=== PATIENT | female | born 1965 | race Caucasian/White ===

== ENCOUNTER → 2016-10-25 | Outpatient (REF) | payer BC | LOC: M LAB REF 10:11 | PROVIDERS: ATTEND Physician Assistant | DX: N39.0 Urinary tract infection, site not specified (principal) ==

== ENCOUNTER → 2016-11-17 | Outpatient (REF) | payer BC ==
[2016-11-17 12:17] LABS: MEAN CORPUSCULAR HEMOGLOBIN 30.1 pg (27.0-33.0); MEAN CORPUSCULAR HGB CONC 33.1 g/dl (32.0-36.5); RED CELL DISTRIBUTION WIDTH 12.2 % (11.5-14.5)
[2016-11-17 12:42] LABS: ALBUMIN 3.8 GM/DL (3.2-5.2); ALBUMIN/GLOBULIN RATIO 1.09 (1.00-1.93); ALKALINE PHOSPHATASE 111 U/L (45-117); ALT/SGPT 23 U/L (12-78); ANION GAP 6 MEQ/L (8-16); AST/SGOT 21 U/L (15-37); BILIRUBIN,TOTAL 0.5 MG/DL (0.2-1.0); BLOOD UREA NITROGEN 12 MG/DL (7-18); CALCIUM LEVEL 9.3 MG/DL (8.5-10.1); CARBON DIOXIDE LEVEL 30 MEQ/L (21-32); CHLORIDE LEVEL 106 MEQ/L (98-107); CHOLESTEROL LEVEL 204 MG/DL (<200); CREATININE FOR GFR 0.82 MG/DL (0.55-1.02); GLOMERULAR FILTRATION RATE > 60.0 (>51); GLUCOSE, FASTING 108 MG/DL (70-105); POTASSIUM SERUM 4.1 MEQ/L (3.5-5.1); SODIUM LEVEL 142 MEQ/L (136-145); TOTAL PROTEIN 7.3 GM/DL (6.4-8.2); TRIGLYCERIDES LEVEL 184 MG/DL (<150)
== END ==
LOC: M SFHCCLAY 07:03
PROVIDERS: ATTEND Nurse Practitioner Family
DX: F32.9 Major depressive disorder, single episode, unspecified (principal); E78.5 Hyperlipidemia, unspecified; E55.9 Vitamin D deficiency, unspecified

== ENCOUNTER → 2017-01-04 | Outpatient (CLI) | payer BC | LOC: M LAB 13:17 | PROVIDERS: ATTEND Physician Assistant | DX: N39.0 Urinary tract infection, site not specified (principal) ==

== ENCOUNTER → 2017-01-22 | Outpatient (REF) | payer BC | LOC: M SFHCCLAY 08:53 | PROVIDERS: ATTEND Nurse Practitioner Family | DX: N39.0 Urinary tract infection, site not specified (principal) ==

== ENCOUNTER → 2017-02-26 | Outpatient (CLI) | payer BC ==
[~2017-02-26] MED LIST: BUPR150T3 PO; CRANPOW2 PO; FISH1000 PO; SLEE1TAB PO; XANA0.5T PO
--- NOTE | 2017-02-26 10:48 | REP ---
Urinary tract sonogram: History: Recurrent UTI Comparison: No comparison study Findings: Scanning at the level of the urinary bladder shows no abnormality. Pre void bladder volume is calculated at 295 ml. Postvoid bladder volume is 36 ml. Emptying ureteral jets are confirmed bilaterally. Renal cortical echogenicity pattern is normal bilaterally and contours are smooth. There is no evidence of hydronephrosis, cyst, mass, or calculus in either kidney. The right kidney measures 9.9 x 4.5 x 4.2 cm. Left renal dimensions are 10.2 x 3.9 x 4.1 cm. Impression: Normal urinary tract sonography. Signed by Vaughn Ortiz MD 02/26/2017 10:39 A
== END ==
LOC: M SMT 07:54
PROVIDERS: ATTEND Nurse Practitioner Women's Health
DX: R31.29 Other microscopic hematuria (principal); N39.0 Urinary tract infection, site not specified

== ENCOUNTER 2017-03-09 07:52 | Outpatient (CLI) | payer BC ==
[~2017-03-09] VITALS: Ht 170.2 cm; Wt 68.9 kg
[~2017-03-09 07:52] MED LIST changes: +LR 1,000 ML IV SCH
[2017-03-09] MEDS ORDERED: PROPOFOL 200 MG/20 ML VIAL As Ordered ONE (08:32)
[2017-03-09] MEDS ORDERED: LIDOCAINE 2% INJ 100 MG/5 ML SDV (FOR ANES.) As Ordered ONE (08:33)
--- NOTE | 2017-03-09 10:14 | ROOR ---
Patient Name: Kisha Bravo Procedure Date: 03/09/2017 9:47 AM Date of : 1965 Age: 51 Room: [facility] Gender: Female Note Status: Finalized Procedure: Colonoscopy Indications: Screening for colorectal malignant neoplasm, This is the patient's first colonoscopy Providers: Brandon Guy MD Referring MD: Drew Jack MD Requesting Provider: Medicines: Monitored Anesthesia Care Complications: No immediate complications. Procedure: Pre-Anesthesia Assessment: - Prior to the procedure, a History and Physical was performed, and patient medications and allergies were reviewed. The patient is competent. The risks and benefits of the procedure and the sedation options and risks were discussed with the patient. All questions were answered and informed consent was obtained. Patient identification and proposed procedure were verified by the physician, the nurse and the anesthesiologist in the procedure room. Mental Status Examination: alert and oriented. Airway Examination: normal oropharyngeal airway and neck mobility. CV Examination: regular rate and rhythm. Prophylactic Antibiotics: The patient does not require prophylactic antibiotics. Prior Anticoagulants: The patient has taken no previous anticoagulant or antiplatelet agents. ASA Grade Assessment: I - A normal, healthy patient. After reviewing the risks and benefits, the patient was deemed in satisfactory condition to undergo the procedure. The anesthesia plan was to use monitored anesthesia care (MAC). Immediately prior to administration of medications, the patient was re-assessed for adequacy to receive sedatives. The heart rate, respiratory rate, oxygen saturations, blood pressure, adequacy of pulmonary ventilation, and response to care were monitored throughout the procedure. The physical status of the patient was re-assessed after the procedure. The Colonoscope was introduced through the anus and advanced to the cecum, identified by appendiceal orifice and ileocecal valve. The colonoscopy was performed without difficulty. The patient tolerated the procedure well. The quality of the bowel preparation was excellent. Findings: The perianal and digital rectal examinations were normal. The colon (entire examined portion) appeared normal. Impression: - The entire examined colon is normal. - No specimens collected. Recommendation: - Discharge patient to home. - Resume regular diet. - Continue present medications. - Repeat colonoscopy in 10 years for screening purposes. - Return to endoscopist PRN. Brandon Guy MD 03/09/2017 10:14:02 AM Number of Addenda: 0 Note Initiated On: 03/09/2017 9:47 AM Estimated Blood Loss: Estimated blood loss: none.
[2017-03-09 10:35] VITALS: BP 123/78
== END 2017-03-09 10:42 | disposition home or self-care (01) ==
LOC: M OPP 07:52
PROVIDERS: ATTEND Surgery
DX: Z12.11 Encounter for screening for malignant neoplasm of colon (principal); F41.9 Anxiety disorder, unspecified; F32.9 Major depressive disorder, single episode, unspecified; Z78.0 Asymptomatic menopausal state; J45.909 Unspecified asthma, uncomplicated; Z87.440 Personal history of urinary (tract) infections; Z88.2 Allergy status to sulfonamides; Z79.899 Other long term (current) drug therapy

== ENCOUNTER → 2017-05-03 | Outpatient (REF) | payer BC ==
[~2017-05-03] MED LIST changes: -LR 1,000 ML IV SCH
== END ==
LOC: M SFHCCLAY 10:05
PROVIDERS: ATTEND Nurse Practitioner
DX: N13.9 Obstructive and reflux uropathy, unspecified (principal)

== ENCOUNTER → 2017-07-07 | Outpatient (REF) | payer BC ==
[2017-07-07 12:44] LABS: SQUAMOUS EPITHELIAL CELL URINE SMALL AMOUNT /hpf (SMALL AMT)
[2017-07-07 12:45] LABS: BACTERIA, URINE NONE SEEN; HYALINE CAST, URINE NONE SEEN /lpf (0-1); MICROSCOPIC EXAM PERFORMED
== END ==
LOC: M SFHCCLAY 07:33
PROVIDERS: ATTEND Nurse Practitioner Family
DX: E78.5 Hyperlipidemia, unspecified (principal); R31.29 Other microscopic hematuria; E55.9 Vitamin D deficiency, unspecified

== ENCOUNTER → 2017-12-06 | Outpatient (REF) | payer BC | LOC: M SFHCCLAY 14:16 | DX: F32.9 Major depressive disorder, single episode, unspecified (principal); E78.5 Hyperlipidemia, unspecified; E55.9 Vitamin D deficiency, unspecified ==

== ENCOUNTER → 2017-12-08 | Outpatient (REF) | payer BC ==
[2017-12-08 16:54] LABS: HEMATOCRIT 36.9 % (36.0-47.0); HEMOGLOBIN 12.2 g/dl (12.0-15.5); MEAN CORPUSCULAR HEMOGLOBIN 30.2 pg (27.0-33.0); MEAN CORPUSCULAR HGB CONC 33.1 g/dl (32.0-36.5); MEAN CORPUSCULAR VOLUME 91.3 fl (80.0-96.0); PLATELET COUNT, AUTOMATED 310 10^3/uL (150-450); RED BLOOD COUNT 4.04 10^6/uL (4.00-5.40); RED CELL DISTRIBUTION WIDTH 11.9 % (11.5-14.5); WHITE BLOOD COUNT 8.1 10^3/uL (4.0-10.0)
[2017-12-08 17:07] LABS: ALBUMIN 3.9 GM/DL (3.2-5.2); ALBUMIN/GLOBULIN RATIO 1.05 (1.00-1.93); ALKALINE PHOSPHATASE 107 U/L (45-117); ALT/SGPT 22 U/L (12-78); ANION GAP 6 MEQ/L (8-16); AST/SGOT 19 U/L (7-37); BILIRUBIN,TOTAL 0.3 MG/DL (0.2-1.0); BLOOD UREA NITROGEN 16 MG/DL (7-18); CALCIUM LEVEL 9.1 MG/DL (8.5-10.1); CARBON DIOXIDE LEVEL 29 MEQ/L (21-32); CHLORIDE LEVEL 104 MEQ/L (98-107); CHOLESTEROL LEVEL 220 MG/DL (<200); CHOLESTEROL RISK RATIO 2.972 (<5); CREATININE FOR GFR 0.88 MG/DL (0.55-1.30); GLOMERULAR FILTRATION RATE > 60.0 (>51); GLUCOSE, FASTING 149 MG/DL (70-100); HDL CHOLESTEROL 74 MG/DL (>40); LDL CHOLESTEROL 115.8 MG/DL (<100); NON-HDL-C 146 MG/DL; POTASSIUM SERUM 4.3 MEQ/L (3.5-5.1); SODIUM LEVEL 139 MEQ/L (136-145); TOTAL PROTEIN 7.6 GM/DL (6.4-8.2); TRIGLYCERIDES LEVEL 151 MG/DL (<150)
[2017-12-08 17:08] LABS: TOTAL 25(OH) VITAMIN D 24.3 NG/ML (30.0-100.0)
== END ==
LOC: M SFHCCLAY 12:31
DX: R31.29 Other microscopic hematuria (principal)
CPT/HCPCS: 80053

== ENCOUNTER → 2018-01-04 | Outpatient (REF) | payer BC ==
[2018-01-04 11:28] LABS: GLUCOSE, FASTING 97 MG/DL (70-100)
[2018-01-04 11:42] LABS: ESTIMATED AVERAGE GLUCOSE 111 MG/DL (60-110); HEMOGLOBIN A1c 5.5 %
== END ==
LOC: M SFHCCLAY 07:01
DX: R73.01 Impaired fasting glucose (principal)

== ENCOUNTER → 2018-03-18 | Outpatient (CLI) | payer BC | LOC: M RAD 09:46 | DX: Z12.31 Encounter for screening mammogram for malignant neoplasm of breast (principal) | CPT/HCPCS: 77067 ==

== ENCOUNTER → 2018-03-21 | Outpatient (REF) | payer BC ==
[2018-03-21 12:27] LABS: TOTAL 25(OH) VITAMIN D 32.8 NG/ML (30.0-100.0)
[2018-03-21 12:31] LABS: CHOLESTEROL LEVEL 216 MG/DL (<200); GLUCOSE, FASTING 95 MG/DL (70-100); HDL CHOLESTEROL 61 MG/DL (>40); LDL CHOLESTEROL 106.2 MG/DL (<100); NON-HDL-C 155 MG/DL; TRIGLYCERIDES LEVEL 244 MG/DL (<150)
== END ==
LOC: M SFHCCLAY 07:05
DX: R73.9 Hyperglycemia, unspecified (principal); E78.5 Hyperlipidemia, unspecified; E55.9 Vitamin D deficiency, unspecified
CPT/HCPCS: 82947